=== PATIENT | male | born 1985 ===

== ENCOUNTER 2018-06-24 14:13 | Outpatient (CLI) | END 2018-06-24 14:46 | disposition short-term general hospital (02) | LOC: AMBL 14:13 | PROVIDERS: ATTEND Internal Medicine | DX: R07.9 Chest pain, unspecified (principal); I10 Essential (primary) hypertension; R53.1 Weakness; R42 Dizziness and giddiness; M25.522 Pain in left elbow; R53.83 Other fatigue; R00.0 Tachycardia, unspecified ==